=== PATIENT | male | born 1995 | race African-American/Black ===

== ENCOUNTER 2017-06-30 17:57 | Emergency (ER) | payer OTHER ==
[~2017-06-30] VITALS: Ht 188 cm; Wt 81.6 kg
[2017-06-30] MEDS ORDERED: NKM (18:13)
[2017-06-30 18:18] VITALS: BP 133/80
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
[2017-06-30 19:14] VITALS: BP 133/80
== END 2017-06-30 19:34 | disposition home or self-care (01) ==
LOC: EMR 18:49
DX: S01.81XA Laceration without foreign body of other part of head, initial encounter (principal); Y04.2XXA Assault by strike against or bumped into by another person, initial encounter; Y92.9 Unspecified place or not applicable
CPT/HCPCS: 12013; 99284; Z7502